=== PATIENT | male | born 1935 | race Caucasian/White ===

== ENCOUNTER 2017-01-03 20:03 | Observation (INO) | payer OTHER ==
[~2017-01-03] VITALS: Ht 165.1 cm; Wt 59.0 kg
[2017-01-03 22:34] LABS: HEMATOCRIT 42.8 % (38.0-50.0); MCH 31.5 PG (29.0-34.0); MCHC 34.3 G/DL (30.0-36.0); MCV 91.8 FL (86-99); MEAN PLAT.VOLUME 11.3 uM^3 (9.0-12.4); PLATELET COUNT 270 K/uL (156-360); RBC DIS.WIDTH-CV 14.2 % (11.8-14.6); RBC DIS.WIDTH-SD 46.1 % (39-53); RED BLOOD COUNT 4.66 M/uL (4.00-5.50); WHITE BLOOD COUNT 10.6 K/uL (4.1-10.2)
[2017-01-03 22:42] LABS: CHLORIDE 101 mEq/L (99-109); POTASSIUM 3.7 mEq/L (3.7-5.4)
[2017-01-03 22:43] LABS: SODIUM 141 mEq/L (136-147)
[2017-01-03 22:44] LABS: GLUCOSE 170 mg/dL (70-99)
[2017-01-03 22:46] LABS: ANION GAP 14 MEQ/L (2-14)
[2017-01-03 22:48] LABS: GFR ESTIMATE (CALCULATED) > 59 mL/min/
[2017-01-03 22:49] LABS: UREA NITROGEN (BUN) 18 mg/dL (9-23)
[2017-01-04 00:36] LABS: EOSINOPHIL (%) 1.6 % (0-5); EOSINOPHIL COUNT 0.2 K/uL (0-0.3); IMMATURE GRANULOCYTE (%) 0.1 % (0.0-0.7); IMMATURE GRANULOCYTE COUNT 0.1 K/uL; LYMPHOCYTE COUNT 0.7 K/uL (1.0-2.8); MONOCYTE (%) 6.2 % (3-12); MONOCYTE COUNT 0.7 K/uL (0-0.8); NEUTROPHIL COUNT 9.3 K/uL (1.8-6.4)
[2017-01-04 00:45] LABS: TOTAL BILIRUBIN 0.9 mg/dL (0.0-1.0)
[2017-01-04 00:46] LABS: ALKALINE PHOSPHATASE 67 IU/L (3-129)
[2017-01-04 00:49] LABS: DIRECT BILIRUBIN 0.3 mg/dL (0.0-0.3)
[2017-01-04 00:53] LABS: TROP-I INTERPRETATION NEGATIVE; TROPONIN-I < 0.01 ng/mL (0.0-0.30)
[2017-01-04 03:07] LABS: ADD MIUA? NO; BILIRUBIN NEGATIVE; BLOOD NEGATIVE; COLOR YELLOW ((YELLOW)); GLUCOSE (STRIP) NEGATIVE; KETONES 20; LEUKOCYTES NEGATIVE; NITRITE NEGATIVE; PROTEIN (STRIP) NEGATIVE; SPECIFIC GRAVITY 1.011 (1.000-1.030); UCUL ADDED? NO; UROBILINOGEN 0.2 MG/DL (0.2-1.0)
[2017-01-04 04:52] VITALS: BP 171/76
[2017-01-04 05:12] VITALS: BP 162/70
[2017-01-04 07:07] LABS: TROP-I INTERPRETATION NEGATIVE; TROPONIN-I 0.02 ng/mL (0.0-0.30)
[2017-01-04 09:15] VITALS: BP 142/75
[2017-01-04 11:58] VITALS: BP 157/74
[2017-01-04 13:45] LABS: TROP-I INTERPRETATION NEGATIVE; TROPONIN-I 0.02 ng/mL (0.0-0.30)
[2017-01-04] MEDS ORDERED: LISINOPRIL20 MG PO (15:14)
[2017-01-04] MEDS ORDERED: ATORVASTATIN CA40 MG PO (15:14)
[2017-01-04] MEDS ORDERED: PRILOSEC20 MG PO (15:15)
[2017-01-04] MEDS ORDERED: METFORMIN HCL1000 MG PO (15:15)
[2017-01-04] MEDS ORDERED: ONE DAILY TABL1 EAC1 PO (15:16)
[2017-01-04] MEDS ORDERED: ASPIR 8181 M1 PO (15:16)
[2017-01-04] MEDS ORDERED: XALATAN2.5 ML BOTH EYES (15:17)
[2017-01-04] MEDS ORDERED: COSOPT EYE DROPS5 ML BOTH EYES (15:17)
[2017-01-04] MEDS ORDERED: NITROSTAT0.4 MG SL (15:18)
[2017-01-04] MEDS ORDERED: CITALOPRAM HBR20 MG PO (15:18)
[2017-01-04] MEDS ORDERED: VITAMIN E1000 UNI1 PO (15:18)
[2017-01-04 15:54] VITALS: BP 163/78
[2017-01-04 21:30] VITALS: BP 151/72
[2017-01-05 00:40] VITALS: BP 140/68; BP 142/63
[2017-01-05 04:07] VITALS: BP 145/66
[2017-01-05 07:49] VITALS: BP 157/71
[2017-01-05 11:48] VITALS: BP 140/66
== END 2017-01-05 16:40 | disposition home health service (06) ==
LOC: EME 20:03 → 5WEST 01-04 02:15 → EDOF 01-04 02:15 → 5WEST 01-04 03:06
PROVIDERS: Physician Assistant
DX: R07.9 Chest pain, unspecified (principal); R55 Syncope and collapse; R42 Dizziness and giddiness; R26.2 Difficulty in walking, not elsewhere classified; I10 Essential (primary) hypertension; I65.23 Occlusion and stenosis of bilateral carotid arteries; I25.10 Atherosclerotic heart disease of native coronary artery without angina pectoris; E78.5 Hyperlipidemia, unspecified; E11.9 Type 2 diabetes mellitus without complications; F03.90 Unspecified dementia, unspecified severity, without behavioral disturbance, psychotic disturbance, mood disturbance, and anxiety
CPT/HCPCS: 70450; 71020; 80048; 80076; 81003; 83880; 84484; 85025; 85027; 93005; 93306; 93880; 99281; 99285; G0378; G8978 GP CJ; G8979 GP CI; G8980 CJ; G8987 GO CJ; G8988 CI; G8989 CJ; J1644; J7030; J7040